=== PATIENT | male | born 1965 | race Caucasian/White ===

== ENCOUNTER 2016-07-19 19:52 | Emergency (ER) | payer MEDICAID ==
[2016-07-19 20:04] VITALS: RESP 14; O2SAT 94
--- NOTE | 2016-07-19 20:16 | EDPHY ---
H & P Stated Complaint: heel pain Time Seen by Provider: 07/19/16 19:53 HPI/ROS: CHIEF COMPLAINT: left heel pain HISTORY OF PRESENT ILLNESS: 51-year-old male presents emergency department by ambulance complaining of left heel and left lower leg pain. Patient reports he was rock climbing today when he fell 6 feet landing on his feet. Patient reports he has had pain since this time. He reports he has been unable to ambulate no EMS watched him walking with a limp. Patient is intoxicated, well known to the police. He denies head strike, no neck pain. No numbness or tingling to this leg, no calf pain. REVIEW OF SYSTEMS: A comprehensive 10 point review of systems is otherwise negative aside from elements mentioned in the history of present illness. Source: Patient, EMS Exam Limitations: Intoxication - Personal History Current Tetanus/Diphtheria Vaccine: Yes Current Tetanus Diphtheria and Acellular Pertussis (TDAP): Yes Tetanus Vaccine Date: last 10 years - Medical/Surgical History Hx Asthma: No Hx Chronic Respiratory Disease: No Hx Diabetes: No Hx Cardiac Disease: No Hx Renal Disease: No Hx Cirrhosis: No Hx Alcoholism: Yes Hx HIV/AIDS: No Hx Splenectomy or Spleen Trauma: No Other PMH: pmh- Hep C- treated for same so "hepatitis free". depression and alcohol abuse - Social History Smoking Status: Heavy smoker - Physical Exam Exam: Physical Exam Gen: Alert and Oriented, NAD, smells of alcohol HEENT: PERRL, moist mucous membranes NECK: No C-spine tenderness CV: regular rate and regular rhythm PULM: CTAB, no wheezes ABDOMEN: soft, non tender to palpation, BS present BACK: No midline back pain, No CVA tenderness NEURO: Neurologically grossly intact EXTREMITIES: Left lower leg with tenderness to palpation to lateral squeeze, left Achilles with mild swelling and tenderness to palpation, no medial or lateral ankle tenderness to palpation, deltoid ligament tenderness, no ATFL or CFL tenderness. 2+ pedal pulses, sensation intact to light touch, no break in skin. Tenderness to lateral squeeze of calcaneus, no tenderness to Achilles SKIN: no rash or break in skin on exposed skin PSYCH: answers questions appropriately. Constitutional: Initial Vital Signs Temperature (C) 36.9 C 07/19/16 20:02 Heart Rate 78 07/19/16 20:02 Respiratory Rate 14 07/19/16 20:02 Blood Pressure 125/64 H 07/19/16 20:02 O2 Sat (%) 94 07/19/16 20:02 O2 Delivery Mode Room Air Allergies/Adverse Reactions: No Known Allergies Allergy (Verified 07/19/16 20:01) Home Medications: Medication Instructions Recorded Venlafaxine HCl [Effexor] 75 mg PO 02/20/12 oxyCODONE/APAP 5/325 [Percocet 1 - 2 tab PO Q4-6PRN PRN #15 tab 02/14/15 5/325] oxyCODONE/APAP 5/325 [Percocet 1 - 2 tab PO Q4PRN PRN #9 tab 05/03/16 5/325 (*)] Medical Decision Making - Diagnostics Imaging: Left tib-fib and ankle x-ray independently reviewed by me- Impression: Normal exam. Dictated By: Dom Vickers MD Departure - Departure Disposition: Home, Routine, Self-Care Clinical Impression: Left ankle sprain Qualifiers: Encounter type: initial encounter Involved ligament of ankle: deltoid ligament Qualifier Code: (S93.422A) Sprain of deltoid ligament of left ankle, initial encounter Condition: Good Instructions: Ankle Sprain (ED) Additional Instructions: Rest, ice, elevate, take 400 mg of ibuprofen every 8 hours with food for 3-5 days for pain and swelling. Use crutches as needed for ambulation. Follow up with the orthopedist for pain that is not improving in the next 3-5 days. Return to the emergency department for worsening symptoms, new symptoms or concerns. Referrals: Carlito Fonseca MD [Medical Doctor] - As per Instructions (Orthopedist on- call)
--- NOTE | 2016-07-19 20:45 | DX ---
Left tibia/fibula, 2 views. History: Pain after trauma. Findings: No fracture. Normal alignment. No periostitis. Impression: Normal exam.
--- NOTE | 2016-07-19 20:45 | DX ---
Left ankle, three views. History: PAIN Findings: Ankle mortice is intact. No fracture or joint effusion. Soft tissues appear unremarkable . Impression: Negative left ankle series.
[2016-07-19] MEDS ORDERED: IBUPROFEN 600 MG TAB PO ONE (21:14)
[2016-07-19 21:23] VITALS: BP 133/74; PULSE 80; TEMP 97.9
== END 2016-07-19 21:22 | disposition home or self-care (01) ==
LOC: EDUNIT#
DX: S93.422A Sprain of deltoid ligament of left ankle, initial encounter (principal); F17.200 Nicotine dependence, unspecified, uncomplicated; W17.89XA Other fall from one level to another, initial encounter
CPT/HCPCS: L4386

== ENCOUNTER 2016-08-11 14:20 | Emergency (ER) | payer MEDICAID ==
[2016-08-11 14:30] VITALS: BP 118/90; PULSE 106; RESP 18; TEMP 98.6; O2SAT 93
--- NOTE | 2016-08-11 14:58 | EDPHY ---
H & P Stated Complaint: ETOH Time Seen by Provider: 08/11/16 14:43 HPI/ROS: CHIEF COMPLAINT: Concerned about ongoing tremor, history of alcohol abuse HISTORY OF PRESENT ILLNESS: Patient presents to the ED with concerns about ongoing fine tremor. The patient has a fairly complicated past medical history including hepatitis-C and sporadic alcohol abuse. The patient reported that he had stopped drinking for approximately 2 weeks and continued to have a fine tremor. The patient is scheduled to see his primary care provider in 2 weeks for evaluation of his symptoms. The patient presented to the ED today secondary to some anxiety about this ongoing tremor. He also reports that he has had fairly significant alcohol consumption over the past 3 days. The patient denies recent fall or trauma. He denies chest pain or shortness of breath. He denies additional complaints. REVIEW OF SYSTEMS: A comprehensive 10 point review of systems is otherwise negative aside from elements mentioned in the history of present illness. Source: Patient Exam Limitations: No limitations - Personal History Current Tetanus Diphtheria and Acellular Pertussis (TDAP): Yes Tetanus Vaccine Date: last 10 years - Medical/Surgical History Hx Asthma: No Hx Chronic Respiratory Disease: No Hx Diabetes: No Hx Cardiac Disease: No Hx Renal Disease: No Hx Cirrhosis: No Hx Alcoholism: Yes Hx HIV/AIDS: No Hx Splenectomy or Spleen Trauma: No Other PMH: pmh- Hep C- treated for same so "hepatitis free". depression and alcohol abuse - Social History Smoking Status: Heavy smoker - Physical Exam Exam: General Appearance: Alcohol on breath Eyes: Pupils equal and round no pallor or injection ENT, Mouth: Mucous membranes moist Respiratory: There are no retractions, lungs are clear to auscultation Cardiovascular: Regular rate and rhythm Gastrointestinal: Abdomen is soft and nontender, no masses, bowel sounds normal Neurological: A&O, normal motor function, normal sensory exam, normal cranial nerves Skin: Warm and dry, no rashes Musculoskeletal: Neck is supple nontender Extremities: symmetrical, full range of motion Constitutional: Initial Vital Signs Temperature (C) 37.0 C 08/11/16 14:28 Heart Rate 106 H 08/11/16 14:28 Respiratory Rate 18 08/11/16 14:28 Blood Pressure 118/90 H 08/11/16 14:28 O2 Sat (%) 93 08/11/16 14:28 O2 Delivery Mode Room Air Allergies/Adverse Reactions: No Known Allergies Allergy (Verified 07/19/16 20:01) Home Medications: Medication Instructions Recorded Venlafaxine HCl [Effexor] 75 mg PO 02/20/12 oxyCODONE/APAP 5/325 [Percocet 1 - 2 tab PO Q4-6PRN PRN #15 tab 02/14/15 5/325] oxyCODONE/APAP 5/325 [Percocet 1 - 2 tab PO Q4PRN PRN #9 tab 05/03/16 5/325 (*)] Medical Decision Making ED Course/Re-evaluation: The patient presents to the ED with alcohol intoxication and concerns about a resting tremor. The patient does not appear to be in any obvious withdrawal. He does have a very fine tremor noted on exam. The patient has no evidence of significant alcohol withdrawal at this point time. The patient was [facility] but declines. The patient would like to be referred to a neurologist for further evaluation of his tremor. The patient will be referred to the neurologist at the [facility]. He has an appointment to see his primary care provider in 2 weeks. The patient is comfortable going to the [facility] as needed for symptoms of withdrawal. The patient has no focal findings on his neurologic exam. There is nothing to suggest an obvious seizure disorder. The patient has no history or signs of external trauma. The patient has stable vital signs without clinical evidence of meningitis. The patient denies additional complaints and is comfortable pursuing outpatient workup through the Neurology Department at the [facility]. Differential Diagnosis: Differential diagnosis considered includes alcohol intoxication, alcohol withdrawal, metabolic abnormality Departure - Departure Disposition: Home, Routine, Self-Care Clinical Impression: Alcoholic intoxication, Tremor Condition: Good Instructions: Tremors (ED) Additional Instructions: 1. Please schedule a follow-up appointment with the neurologist at the [facility], Dr. Vogt 2. Please follow up with your primary care provider at the [facility] as scheduled. Referrals: Soraya Vogt DO [Non Staff and Non MD] - As per Instructions Estrellita Mendes PA [Physician Manager Instrumentation] - As per Instructions
== END 2016-08-11 15:09 | disposition home or self-care (01) ==
LOC: EDUNIT#
DX: R25.1 Tremor, unspecified (principal); F10.129 Alcohol abuse with intoxication, unspecified; F17.200 Nicotine dependence, unspecified, uncomplicated

== ENCOUNTER → 2016-09-30 | Outpatient (CLI) | payer MEDICAID | LOC: FIMAGING 19:23 | PROVIDERS: ATTEND Psychiatry & Neurology Neurology | DX: M99.71 Connective tissue and disc stenosis of intervertebral foramina of cervical region (principal); M43.12 Spondylolisthesis, cervical region; M47.892 Other spondylosis, cervical region; M89.38 Hypertrophy of bone, other site ==

== ENCOUNTER 2017-09-27 08:17 | Emergency (ER) | payer MEDICAID ==
--- NOTE | 2017-09-27 08:22 | EDPHY ---
H & P Source: Patient, EMS, Old records Exam Limitations: No limitations - Personal History Tetanus Vaccine Date: last 10 years - Medical/Surgical History Hx Asthma: No Hx Chronic Respiratory Disease: No Hx Diabetes: No Hx Cardiac Disease: No Hx Renal Disease: No Hx Cirrhosis: No Hx Alcoholism: Yes Hx HIV/AIDS: No Hx Splenectomy or Spleen Trauma: No Other PMH: pmh- Hep C- treated for same so "hepatitis free". depression and alcohol abuse - Social History Smoking Status: Heavy smoker Time Seen by Provider: 09/27/17 08:22 HPI/ROS: HPI: This is a 52-year-old male who presents Chief Complaint: Left lateral chest Location: Left anterior chest/left lateral rib Quality: Pain Duration: 3 weeks Signs and Symptoms: no shortness of breath at rest, no shortness of breath on exertion,+ chronic cough, + chest pain, no palpitations, no lower extremity edema, no wheezing, no orthopnea, no paroxysmal nocturnal dyspnea, no fever, no injury/trauma, no hemoptysis, no carpal pedal spasms Timing: Daily, intermittent Severity: 11/15 Context: Patient presents via EMS with complaints of left anterior chest and left lateral rib, nonradiating pain, moderate in nature x 3 weeks. He smells heavily of alcohol and tobacco smoke. Patient denies any history of coronary artery disease/prior MIs. He reports that he has not been able to climb for the last week due to the discomfort. He denies any fall/Trauma. Right-hand dominant. No lower extremity edema/wheezing/shortness of breath. Patient reports that he does have a chronic cough that is worse in the morning consistent with smoking cigarettes. Patient reports poor appetite. Denies any hematemesis/blood in stool/regular NSAID use. He has tried nothing for the pain. Modifying Factors: None Comment: ROS: see HPI Constitutional: No fever, no chills, no weight loss Eyes: No blurred vision Respiratory: No shortness of breath, no cough Cardiovascular: No chest pain, no palpitations, no lower extremity edema Gastrointestinal: No nausea, no vomiting, no diarrhea Genitourinary: No dysuria Extremities: No myalgias Neurologic: No weakness, no numbness Skin: No rashes Hematologic: No bruising, no bleeding MEDICAL/SURGICAL/SOCIAL HISTORY: Medical history: Hep C- treated for same so "hepatitis free", depression and alcohol abuse Surgical history: Denies Social history: Unemployed. CONSTITUTIONAL: Clearly intoxicated chronically ill-appearing male that appears older than stated age; smells of alcohol and cigarette, awake and alert , no obvious distress HEENT: Atraumatic and normocephalic, PERRL, EOMI. Nares patent; no rhinorrhea; no nasal mucosal edema. Tympanic membranes clear. Oropharynx clear, no exudate and moist pink mucosa. Airway patent. No lymphadenopathy. No meningismus. Cardiovascular: Normal S1/S2, regular rate, regular rhythm, without murmur rub or gallop. PULMONARY/CHEST: Symmetrical and reproducible left lower lateral rib tenderness. No crepitus. No ecchymosis. No step-off. Expiratory coarseness bilaterally noted. Good air movement. No accessory muscle usage. ABDOMEN: Soft, nondistended, nontender, no rebound, no guarding, no peritoneal signs, no masses or organomegaly. No CVAT. EXTREMITIES: 2/2 pulses, strength 5/5, no deformities, no clubbing, no cyanosis or edema. NEUROLOGICAL: no focal neuro deficits. GCS 15. SKIN: Warm and dry, leathery; tattoos present; no erythema. no rash. Good capillary refill. (Mary Garces) Constitutional: Initial Vital Signs Temperature (C) 36.6 C 09/27/17 08:18 Heart Rate 66 09/27/17 08:18 Respiratory Rate 14 09/27/17 08:18 Blood Pressure 124/81 H 09/27/17 08:18 O2 Sat (%) 96 09/27/17 08:18 O2 Delivery Mode Room Air Allergies/Adverse Reactions: No Known Allergies Allergy (Verified 07/19/16 20:01) Home Medications: Medication Instructions Recorded Esomeprazole Mag Trihydrate 40 mg PO DAILY #20 09/27/17 [Nexium] Prozac 10 MG (*) 09/27/17 traZODone 09/27/17 Medical Decision Making - Diagnostics EKG Interpretation: 12 lead EKG: Indication: Chest pain Rhythm: Normal sinus rhythm, rate of 64 beats per minute [place]: Normal Intervals: Normal QRS: Normal ST segments: Nonspecific changes T-waves: Nonspecific changes INTERPRETATION: No acute ischemic changes The 12 lead EKG was interpreted by myself and with attending. (Mary Garces) Imaging Results: Imaging Impressions Ribs w/Chest X-Ray 09/27/17 08:26 Impression: 1. Negative for displaced rib fracture. 2. Query airways disease. ED Course/Re-evaluation: EKG, chest x-ray with rib series, labs, oral medications ordered EKG upon arrival and strip per EMS does not show any acute ischemic changes or arrhythmias. Doubt cardiac in nature-will not give aspirin; suspect alcoholic gastritis without hemorrhage, musculoskeletal, lung or rib pathology 0830: Given GI cocktail. 0855: Labs reviewed. No signs of leukocytosis/anemia/MARCO/elevated LFTs. Sodium 150 consistent with an ethanol alcohol level of 292 Patient does not meet M1 hold or Detainer criteria 0907: Troponin negative Chest x-ray and rib series my read shows no acute fracture, no opacity, no effusion, no pneumothorax, no widened mediastinum. + Hyperinflated/ peribronchial thickening. Heart Score=2; low risk for adverse cardiac event in 6 week period. 0914: Reassessed patient who reports that pain has greatly decreased knowing that "he is not having a heart attack." Advises that he follows at [facility]. He has been trying to stop smoking taking Wellbutrin and Chantix with no avail. Does not have inhalers at home and has not had an official diagnosis of COPD. No signs of hypoxia/respiratory distress/wheezing. This patient was seen under the supervision of my secondary supervising physician. I evaluated care for this patient independently. Discussed this patient with Dr. Amin who did see the patient. (Mary Garces) Differential Diagnosis: Chest pain including but not limited to myocardial ischemia, pulmonary embolus, chest wall pain, pleural inflammation and pulmonary infectious causes. (Mary Garces) Other Provider: Evaluated patient in conjunction with MIRIAN Garces. I agree with her assessment and treatment plan. (Umang Amin) - Data Points Laboratory Results: Laboratory Results 09/27/17 07:55 09/27/17 07:55 09/27/17 09/27/17 07:55 07:55 WBC 6.13 10^3/uL 10^3/uL (3.80-9.50) RBC 4.35 10^6/uL L 10^6/uL (4.40-6.38) Hgb 14.1 g/dL g/dL (13.7-17.5) Hct 40.6 % % (40.0-51.0) MCV 93.3 fL fL (81.5-99.8) MCH 32.4 pg pg (27.9-34.1) MCHC 34.7 g/dL g/dL (32.4-36.7) RDW 14.9 % % (11.5-15.2) Plt Count 283 10^3/uL 10^3/uL (150-400) MPV 9.4 fL fL (8.7-11.7) Neut % (Auto) 50.6 % % (39.3-74.2) Lymph % (Auto) 38.2 % % (15.0-45.0) [place] % (Auto) 8.6 % % (4.5-13.0) Eos % (Auto) 1.5 % % (0.6-7.6) Baso % (Auto) 0.8 % % (0.3-1.7) Nucleat RBC Rel Count 0.0 % % (0.0-0.2) Absolute Neuts (auto) 3.10 10^3/uL 10^3/uL (1.70-6.50) Absolute Lymphs (auto) 2.34 10^3/uL 10^3/uL (1.00-3.00) Absolute Monos (auto) 0.53 10^3/uL 10^3/uL (0.30-0.80) Absolute Eos (auto) 0.09 10^3/uL 10^3/uL (0.03-0.40) Absolute Basos (auto) 0.05 10^3/uL 10^3/uL (0.02-0.10) Absolute Nucleated RBC 0.00 10^3/uL 10^3/uL (0-0.01) Immature Gran % 0.3 % % (0.0-1.1) Immature Gran # 0.02 10^3/uL 10^3/uL (0.00-0.10) Sodium 150 mEq/L H mEq/L (135-145) Potassium 3.9 mEq/L mEq/L (3.5-5.2) Chloride 106 mEq/L mEq/L (97-110) Carbon Dioxide 29 mEq/l mEq/l (22-31) Anion Gap 15 mEq/L mEq/L (8-16) BUN 14 mg/dL mg/dL (7-23) Creatinine 0.8 mg/dL mg/dL (0.7-1.3) Estimated GFR > 60 Glucose 107 mg/dL H mg/dL (70-100) Calcium 9.3 mg/dL mg/dL (8.5-10.4) Total Bilirubin 0.4 mg/dL mg/dL (0.1-1.4) Conjugated Bilirubin 0.4 mg/dL mg/dL (0.0-0.5) Unconjugated Bilirubin 0.0 mg/dL mg/dL (0.0-1.1) AST 34 IU/L IU/L (17-59) ALT 33 IU/L IU/L (21-72) Alkaline Phosphatase 37 IU/L L IU/L (38-126) Troponin I < 0.012 ng/mL ng/mL (0.000-0.034) Total Protein 7.4 g/dL g/dL (6.3-8.2) Albumin 4.5 g/dL g/dL (3.5-5.0) Lipase 210 IU/L IU/L (23-300) Ethyl Alcohol 292 mg/dL H mg/dL (0-10) Medications Given: Discontinued Medications Al Hydroxide/Mg Hydroxide (Maalox Susp) 30 ml PO ONCE ONE Stop: 09/27/17 08:27 Last Admin: 09/27/17 08:36 Dose: 30 ml Hyoscyamine Sulfate (Levsin, Hyomax-Sl) 0.25 mg PO ONCE ONE Stop: 09/27/17 08:27 Last Admin: 09/27/17 08:36 Dose: 0.25 mg Lidocaine (Lidocaine 2% Viscous) 15 ml PO ONCE ONE Stop: 09/27/17 08:27 Last Admin: 09/27/17 08:36 Dose: 15 ml Departure - Departure Disposition: Home, Routine, Self-Care Clinical Impression: Atypical chest pain 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 Please avoid NSAIDs including ibuprofen, Aleve, Motrin, Advil which can irritate your stomach lining. Start taking Nexium daily for gastritis. Please tried to quit smoking tobacco. Follow-up with your primary care provider in the next 7-10 days. Return to the ER immediately if you experience new, continued or worsened chest pain, chest pain that radiates, chest pain accompanied by exertion or associated with shortness of breath, sweating, nausea, dizziness, back pain, or any other symptoms that concern you. Referrals: [facility] [Provider Group] - 5-7 days, if not improved Prescriptions: Esomeprazole Mag Trihydrate [Nexium] 40 mg PO DAILY #20 cap.
[2017-09-27] MEDS ORDERED: LIDOCAINE 2% VISCOUS 15 ML UDCUP PO ONE (08:26)
[2017-09-27] MEDS ORDERED: HYOSCYAMINE SULFATE 0.125 MG TAB PO ONE (08:26)
[2017-09-27] MEDS ORDERED: MAG HYDROX/AL HYDROX/SIMETH 30 ML UDCUP PO ONE (08:26)
--- NOTE | 2017-09-27 08:31 | CPEKG ---
Heart Rate: 64 RR Interval: 938 P-R Interval: 140 QRSD Interval: 120 QT Interval: 428 QTC Interval: 442 P [place]: 31 QRS [place]: -40 T Wave [place]: 49 EKG Severity - ABNORMAL ECG - EKG Impression: SINUS RHYTHM EKG Impression: NONSPECIFIC IVCD WITH LAD Electronically Signed By: Umang Amin 27-Sep-2017 14:48:00
[2017-09-27 08:32] LABS: PLATELET COUNT 283 10^3/uL (150-400)
[2017-09-27 09:28] VITALS: BP 120/89
== END 2017-09-27 09:28 | disposition home or self-care (01) ==
LOC: EDUNIT#
DX: R07.89 Other chest pain (principal); K29.20 Alcoholic gastritis without bleeding; F10.920 Alcohol use, unspecified with intoxication, uncomplicated; F17.210 Nicotine dependence, cigarettes, uncomplicated
CPT/HCPCS: G0480

== ENCOUNTER 2018-09-08 20:13 | Emergency (ER) | payer MEDICAID ==
[2018-09-08 21:20] LABS: PLATELET COUNT 279 10^3/uL (150-400)
[2018-09-08 21:47] VITALS: BP 142/67
--- NOTE | 2018-09-08 21:49 | EDPHY ---
H & P Stated Complaint: med clear, from [facility], ETOH, was copmbative (improving) Time Seen by Provider: 09/08/18 20:17 HPI/ROS: Chief complaint: Alcohol intoxication, medical clearance for senior living History of present illness: This is a 53-year-old male who is brought to the emergency department by EMS and police from the [facility], intoxicated, to be medically cleared to go to senior living. Patient has apparently been combative with police. On my evaluation patient is quite agitated. I have asked him if he has any current problems, he states he has ongoing chest pain that he has had for years. He denies other associated signs or symptoms. Review of systems: Patient will not answer questions appropriately. He is very agitated. - Personal History Current Tetanus/Diphtheria Vaccine: Yes Current Tetanus Diphtheria and Acellular Pertussis (TDAP): Yes Tetanus Vaccine Date: last 10 years - Medical/Surgical History Hx Asthma: No Hx Chronic Respiratory Disease: No Hx Diabetes: No Hx Cardiac Disease: No Hx Renal Disease: No Hx Cirrhosis: No Hx Alcoholism: Yes Hx HIV/AIDS: No Hx Splenectomy or Spleen Trauma: No Other PMH: pmh- Hep C- treated for same so "hepatitis free". depression and alcohol abuse - Social History Smoking Status: Heavy smoker - Physical Exam Exam: General Appearance: Alert and no distress. Eyes: Pupils equal and round no injection. Respiratory: Chest is non tender, lungs are clear to auscultation. Cardiac: regular rate and rhythm Gastrointestinal: Abdomen is soft and non tender, no masses, bowel sounds normal. Musculoskeletal: Neck is supple and non tender. Extremities have full range of motion and are non tender. Skin: No rashes or lesions. Psychiatric: Patient is very agitated. Constitutional: Initial Vital Signs Temperature (C) 36.7 C 09/08/18 20:24 Heart Rate 73 09/08/18 20:24 Respiratory Rate 20 09/08/18 20:24 Blood Pressure 122/86 H 09/08/18 20:24 O2 Sat (%) 92 09/08/18 20:24 O2 Delivery Mode Room Air Allergies/Adverse Reactions: No Known Allergies Allergy (Verified 09/08/18 20:24) Home Medications: Medication Instructions Recorded Esomeprazole Mag Trihydrate 40 mg PO DAILY #20 cap 09/27/17 [Nexium] Prozac 10 MG (*) 09/27/17 traZODone 09/27/17 Medical Decision Making - Diagnostics Imaging: I viewed and interpreted images myself ED Course/Re-evaluation: Patient seen under the supervision of my secondary supervising physician Dr. Umang Amin. Patient presents for medical clearance to go to senior living. He is complaining of chest pain that he has had for years. He has an unremarkable workup. He is agitated, difficult to communicate with. I do not see need for further emergency department intervention. He is medically cleared to go to senior living. Differential Diagnosis: Included but not limited to alcohol intoxication, alcohol withdrawal, polysubstance abuse, cardiac disorders requiring emergent intervention unlikely - Data Points Laboratory Results: Laboratory Results 09/08/18 21:04 09/08/18 21:04 Point of Care Test Results: Chemistry 09/08/18 21:10 POC Troponin I 0.01 ng/mL ng/mL (0.00-0.08) Departure - Departure Disposition: Home, Routine, Self-Care Clinical Impression: Alcoholic intoxication Qualifiers: Complication of substance-induced condition: uncomplicated Qualified Code(s): F10.920 - Alcohol use, unspecified with intoxication, uncomplicated Chest pain Qualifiers: Chest pain type: unspecified Qualified Code(s): R07.9 - Chest pain, unspecified Condition: Good Instructions: Chest Pain (ED), Alcohol Intoxication (ED) Additional Instructions: Follow-up with a primary care doctor for recheck If symptoms worsen or new symptoms develop return to the emergency room for recheck Medically cleared for senior living Referrals: Patient,NotPresent [Primary Care Provider] - As per Instructions [facility],. [Clinic] - As per Instructions
--- NOTE | 2018-09-08 22:01 | CPEKG ---
Test Reason : OPEN Blood Pressure : / mmHG Vent. Rate : 056 BPM Atrial Rate : 062 BPM P-R Int : 191 ms QRS Dur : 118 ms QT Int : 443 ms P-R-T Axes : 041 144 014 degrees QTc Int : 428 ms Sinus rhythm Ventricular premature complex Left anterior fascicular block Confirmed by Umang Amin ([id number]) on 09/08/2018 10:01:16 PM Referred By: Umang Amin Confirmed By:Umang Amin
== END 2018-09-08 22:15 | disposition home or self-care (01) ==
LOC: EDUNIT#
DX: F10.920 Alcohol use, unspecified with intoxication, uncomplicated (principal); R07.9 Chest pain, unspecified; F17.200 Nicotine dependence, unspecified, uncomplicated; F32.9 Major depressive disorder, single episode, unspecified
CPT/HCPCS: 84484-ER